=== PATIENT | female | born 2000 | race Caucasian/White ===

== ENCOUNTER 2019-01-22 18:03 | Inpatient (IN) ==
[2019-01-22 18:48] LABS: Appearance Urine Clear (Clear); Bilirubin Urine Negative (Negative); Blood Urine Negative (Negative); Color Urine Yellow; Glucose Urine UA Negative (Negative); Ketones Urine Negative (Negative); Leukocyte Esterase Urine Negative (Negative); Nitrite Urine Negative (Negative); Protein Urine Negative (Negative); Specific Gravity Urine 1.005 (1.000-1.030); Urobilinogen Urine Negative (Negative); pH Urine 6.5 (4.5-7.5)
[2019-01-22 18:49] LABS: Basophils # (auto) 0.02 K/uL (0-0.2); Basophils % (auto) 0.2 %; Eosinophils # (auto) 0.06 K/uL (0-0.5); Eosinophils % (auto) 0.7 %; Hematocrit (blood only) 38.5 % (37-47); Hemoglobin 13.3 g/dL (12.0-16.0); Immature Granulocytes # (auto) 0.01 K/uL (0.00-0.02); Immature Granulocytes % (auto) 0.1 %; Lymphocytes # (auto) 2.44 K/uL (1.2-3.4); Mean Corpuscular Hgb Conc 34.5 g/dL (32-36); Mean Corpuscular Volume 86.1 fL (80-100); Mean Platelet Volume 9.7 fL (7.4-10.4); Neutrophils # (auto) 5.37 K/uL (1.4-6.5); Platelet Count 261 K/uL (130-400); RDW Coefficient of Variation 12.7 % (11.5-14.5); RDW Standard Deviation 40.4 fL (36.4-46.3); Red Blood Count 4.47 M/uL (4.2-5.4)
[2019-01-22 19:03] LABS: Pregnancy Test, Serum Negative (Negative)
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
[2019-01-22 19:06] LABS: Amphetamines+Metham, Urine Neg (Neg); Barbiturates, Urine Neg (Neg); Benzodiazepine, Urine Neg (Neg); Cocaine, Urine Neg (Neg); MDMA (Ecstacy), Urine Neg (Neg); Methadone, Urine Neg (Neg); Opiate, Urine Neg (Neg); Phencyclidine, Urine Neg (Neg)
[2019-01-22 19:15] LABS: Albumin Level 3.8 gm/dl (3.4-5.0); BUN Creatinine Ratio 11.3 (10-20); Calcium 8.7 mg/dl (8.5-10.1); Est GFR (African American) 125.8; Est GFR (Non-African American) 108.5; Potassium 3.5 mmol/L (3.5-5.1); Salicylate < 1.7 mg/dl (2.8-20)
[2019-01-22 19:16] LABS: Acetaminophen < 2 ug/ml (10-30)
[2019-01-22 19:25] LABS: Albumin Globulin Ratio 0.9 (0.9-2); Bilirubin,Total 0.2 mg/dl (0.2-1); Globulin 4.2 gm/dl (2.5-4.0)
[2019-01-22] MEDS ORDERED: ACETAMINOPHEN 325 MG TAB PO PRN ×2 (22:42→23:00)
[2019-01-22] MEDS ORDERED: MAGNESIUM HYDROXIDE SUSP 30 ML UDC PO PRN ×2 (22:42→23:00)
[2019-01-22] MEDS ORDERED: SODIUM CHLORIDE 0.65% NA SOLN 45 ML (OCEAN) PRN ×2 (22:42→23:00)
[2019-01-22] MEDS ORDERED: ALUMINUM/MAGNESIUM SUSP 30 ML UDC PO PRN ×2 (22:42→23:00)
[2019-01-22] MEDS ORDERED: BISMUTH SUBSALICYLATE PER ML OMNICELL CHARGE PO PRN ×2 (22:42→23:00)
[2019-01-23] MEDS ORDERED: NON-FORMULARY PATIENT'S OWN MED PO SCH (09:00)
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
[2019-01-23] MEDS: buPROPion HCl 75 MG TABLET PO SCH (13:21)
[2019-01-23] MEDS ORDERED: SERTRALINE HCL 100 MG TABLET PO SCH (21:00)
[2019-01-23] MEDS: SERTRALINE HCL 50 MG TABLET PO SCH (21:48)
[2019-01-23] MEDS: NON-FORMULARY PATIENT'S OWN MED PO SCH (21:50)
[2019-01-24] MEDS: buPROPion HCl 75 MG TABLET PO SCH (09:09)
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
[2019-01-24] MEDS: SERTRALINE HCL 50 MG TABLET PO SCH (21:41)
[2019-01-24] MEDS: NON-FORMULARY PATIENT'S OWN MED PO SCH (21:41)
[2019-01-24] MEDS ORDERED: COUGH DROP (SUGAR FREE) LOZ 24 LOZ/1 BOX BUCCAL PRN (21:42)
[2019-01-25] MEDS: BuPROPion SR 150 MG TABCR PO SCH (08:56)
[2019-01-25] MEDS ORDERED: buPROPion HCl 75 MG TABLET PO SCH (09:00)
[2019-01-25] MEDS ORDERED: NICOTINE POLACRILEX 2 MG GUM MT PRN (10:08)
[2019-01-25] MEDS ORDERED: COUGH DROP (SUGAR FREE) LOZ 24 LOZ/1 BOX BUCCAL PRN (10:11)
--- NOTE | 2019-01-25 12:23 | Psychiatric Progress Note ---
Date of Service January 25, 2019 Impression / Recommendations Impression Patient reports improvement in mood today, feeling more energy and less depressed. Patient seems quite proud of her accomplishments in regard to engaging in therapeutic interventions. Patient shares several analogies indicating her understanding of topics discussed in various group therapy sessions. Patient is tolerated titration of bupropion to 150 mg daily. We will plan to taper sertraline to 25 mg this evening, in preparation for discontinuation the time of discharge. Patient would benefit from titration of bupropion should mood worsen, however, feels her mood is adequate at this time and declines dose increase today. Patient continues to communicate with mother and a constructive way, despite refusing family meeting with her. We will need to ensure stability of mood improvement prior to discharge, as patient is at high risk for destabilization if discharged prematurely. (1) Major depression: The patient was admitted to the [facility] ([facility] mental health unit) on q15 min checks (behavioral with suicide precautions) for safety. The patient will participate in group, recreational, and milieu therapies and will be offered additional individual and family sessions as clinically appropriate. Risks/benefits/alternatives reviewed re: antidepressants for the treatment of depression and/or anxiety. The patient agreed to decrease Zoloft for tonight to begin cross taper to another agent if needed tomorrow if unable to tolerate addition of Wellbutrin. Confirmed no history of seizure or ED. Discussion for both meds included but was not limited to FDA warnings re: SI. Family session is velasquez given borderline traits. 56 - Bupropion SR titrated to 150mg starting tomorrow morning - sertraline continued at 50mg for now (can continue, discontinue, or switch to alternative SSRI depending on response to bupropion) - Continue hydroxyzine as needed for sleep/anxiety - as admits she had restless sleep last evening. - Willing for family meeting with mother, will need to schedule. 01/25 - Continue bupropion SR 150mg qAM - will taper sertraline to 25mg this evening, with potential to discontinue at discharge if no side effects - Not willing for family meeting, but has been communicating with mother and feels supported - Encourage use of hydroxyzine for sleep as needed Inventory Assets Strengths: intelligence, has established outpatient providers Needs: coping skills other than SIB Risk Factors Assessment Male: No : Yes Do You Have Access To A Gun?: No Mental Health Diagnoses: Yes Substance Use Disorders: No Previous Attempt: Yes (gesture age 13 and didn't tell) Previous Psychiatric Hospitalization: No Protective Factors Assessment Employed: No Stable Relationships: Yes Supportive Family: Yes (though reports stressful interactions, mother is aware of her stay) Interval History Identifying Information JANN SIMPSON is a 18-year-old F from [place] who just completed academic year at [employer]. She has no prior psych admissions, and was admitted on 01/22/19 21:42 on a 201 voluntary commitment for SI with plan. Chief Complaint "Good. I'm still hungry from lunch, which I think is a good thing." Review of Systems Notes Constitutional: reports fatigue today Cardiovascular: denied Respiratory: denied Gastrointestinal: denied Neurological: denied Psychiatric: denies symptoms other than stated above Total of at least 10 systems reviewed, pertinent positives as above and in HPI. Sleep Information Total Hours of Sleep: 6.75 Sleep Comments: pt given vistaril per rn. pt on q-15 minute checks. pt complained of on and off sleep during the night. Meal Information Percent Meal Consumed - Breakfast: 50 Percent Meal Consumed - Lunch: 60 Percent Meal Consumed - Dinner: 75 Subjective Subjective Patient was seen & assessed and interval progress reviewed with Nursing. Staff reports that the patient had admitted thoughts of self-harm last evening. She was able to process with nursing and distract herself with an alternative coping strategy. Otherwise the patient reported improvement in mood. She does report URI symptoms of sore throat and cough. Patient is seen today to assess progress since admission. The patient states she is feeling "good" today, feeling pleased with her ability to utilize coping strategies and critical thinking. Patient shares that she read up on last evening relating her negative thoughts to a "bomb". Patient states "you can choose to let it explode, or the other option is to diffuse it." Patient continues by sharing things she has learned in groups, specifically ways to cope with anxiety rather than allowing it to build up. Today she rates her mood an 8 out of 10 feeling much better. Patient admits that she continues to speak with her mother over the phone and feels that their communication is more open. They have been working to reach a compromise in regard to help patient shares her feelings with her mother. Patient denies any negative thoughts or suicidality today, and denies any other needs at this time. Physical Exam Psychiatric A+Ox3, euthymic affect Orientation: alert, oriented x 3 and cooperative Apperance: appropriately dressed, appropriately groomed and appeared stated age Eye Contact: good eye contact Motor Behavior: steady gait and station and no abnormal motor movements Speech: normal rate/rhythm/volume of speech Affect: euthymic affect (appearing much brighter today) Mood: no depressed mood and no anxious mood Thought Process: goal directed thought process, linear/logical thought process and clear/coherent thought process Thought Content: reality based without delusions Suicidal Thoughts: denies suicidal thoughts Homicidal Thoughts: denies homicidal thoughts Hallucinations: no auditory hallucinations and no visual hallucinations Cognition: recent memory grossly intact, remote memory grossly intact, attention grossly intact and language grossly intact Estimated Intelligence: consistent with education level Insight: + fair insight Judgement: + fair judgement Vital Signs (Past 24 Hours) Last Vital Signs Temp 36.6 C 01/25/19 06:41 Pulse 96 H 01/25/19 06:42 Resp 16 01/25/19 06:41 BP 124/79 01/25/19 06:42 Pulse Ox 99 01/22/19 22:14 Results & Data Current Inpatient Medications Current Inpatient Medications: Current Inpatient Medications Acetaminophen (Tylenol) 650 mg PO Q4H PRN PRN Reason: Headache or Minor Fever Stop: 02/21/19 22:41 Last Admin: 01/25/19 08:56 Dose: 650 mg Documented by: Al Hydrox/Mg Hydrox/Simethicone (Maalox) 30 ml PO Q4H PRN PRN Reason: GI Upset Stop: 02/21/19 22:41 Bismuth Subsalicylate (Kaopectate) 15 ml PO PRN PRN PRN Reason: Loose Stool Stop: 02/21/19 22:41 Bupropion HCl (Wellbutrin-Sr) 150 mg PO QAM CLEMENCIA Stop: 02/24/19 08:59 Last Admin: 01/25/19 08:56 Dose: 150 mg Documented by: Hydroxyzine HCl (Vistaril) 25 mg PO Q4H PRN PRN Reason: Anxiety Stop: 02/21/19 22:41 Last Admin: 01/23/19 10:03 Dose: 25 mg Documented by: Hydroxyzine HCl (Vistaril) 50 mg PO HSZ PRN PRN Reason: Insomnia Stop: 02/21/19 22:41 Last Admin: 01/25/19 02:05 Dose: 50 mg Documented by: Magnesium Hydroxide (Milk Of Magnesia) 30 ml PO DAILY PRN PRN Reason: Heartburn Stop: 02/21/19 22:41 Menthol (Nice) 1 tennille BUCCAL PRN PRN PRN Reason: Sore Throat Stop: 02/24/19 10:10 Last Admin: 01/25/19 11:20 Dose: 1 tennille Documented by: Nicotine Polacrilex (Nicorette 2mg) 1 piece MT PRN PRN PRN Reason: nicotine cravings Stop: 02/24/19 10:07 Last Admin: 01/25/19 11:17 Dose: 1 piece Documented by: Non-Formulary Medication (Non-Formulary Patient's Own Med) 1 ea PO DAILY@2300 CLEMENCIA Stop: 02/22/19 08:59 Last Admin: 01/24/19 21:41 Dose: 1 tab Documented by: Sertraline HCl (Zoloft) 50 mg PO QPM CLEMENCIA Stop: 02/22/19 20:59 Last Admin: 01/24/19 21:41 Dose: 50 mg Documented by: Sodium Chloride ([place] Nasal) 1 - 2 sprays NA PRN PRN PRN Reason: Nasal Dryness/Congestion Stop: 02/21/19 22:41 Post Discharge Appointments Primary Care Physician Name Of Family Doctor: Ron here (lukas Moyer) Psychiatrist Name of Psychiatrist: [facility] - Dr. Jaeger Psychiatrist's Date of Appointment with Psychiatrist: 02/01/19 Time of Appointment with Psychiatrist: 8:15 a.m. Psychiatric Appointment Comment: [address] [facility], [place] Therapist Name of Therapist: Irina Leos Therapist's ext [phone] Date of Therapist Appointment: 01/27/19 Time of Therapist Appointment: 1:00 p.m. Therapy Appointment Comment: [address] [facility] [place] Boiler Fireman Name of Boiler Fireman: Ron Contact Information Discharge Discharge Address: [address] [place] [address] [place] [address] CPT Code CPT Code 03384
[2019-01-25] MEDS ORDERED: BENZOCAINE 20% (ORAJEL) 11.9 GM TUBE MT PRN (18:07)
[2019-01-25] MEDS ORDERED: SERTRALINE HCL 50 MG TABLET PO SCH (21:00)
[2019-01-25] MEDS: NON-FORMULARY PATIENT'S OWN MED PO SCH (21:40)
[2019-01-25] MEDS: guaiFENesin 600 MG TABCR PO SCH (21:43)
[2019-01-26] MEDS: guaiFENesin 600 MG TABCR PO SCH (08:08)
[2019-01-26] MEDS: BuPROPion SR 150 MG TABCR PO SCH (08:08)
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
[2019-01-26] MEDS ORDERED: DESTROY THIS MEDICATION ONE (11:32)
== END 2019-01-26 11:48 | disposition home or self-care (01) | DRG 885 ==
LOC: ED 18:03 → 3S 21:40 → SUATTDRO 21:42 → 3S 21:42